=== PATIENT | female | born 1995 | race Caucasian/White ===

== ENCOUNTER 2023-01-30 18:26 | Emergency (ER) | payer OTHER, BC ==
[2023-01-30] MEDS ORDERED: Sodium Chloride 0.9% 1,000 ML IV SCH (18:30)
[2023-01-30 18:42] LABS: BASOPHILS ABSOLUTE AUTO 0.1 x10-3/uL (0.0-0.1); BASOPHILS PERCENT AUTO 0.4 % (0.2-1.5); EOSINOPHILS ABSOLUTE AUTO 0.2 x10-3/uL (0.0-0.8); EOSINOPHILS PERCENT AUTO 1.9 % (0.6-8.1); HEMATOCRIT 28.8 % (34.2-48.2); HEMOGLOBIN 9.4 g/dL (11.4-15.5); LYMPHOCYTES ABSOLUTE AUTO 2.1 x10-3/uL (1.0-4.4); LYMPHOCYTES PERCENT AUTO 16.6 % (18.4-52.1); MEAN CORPUSCULAR HEMOGLOBIN 27.2 pg (23.9-33.9); MEAN CORPUSCULAR HGB CONC 32.8 g/dL (31.9-34.8); MEAN CORPUSCULAR VOLUME 83.2 fL (76.7-100.5); MEAN PLATELET VOLUME 8.9 fL (7.1-12.4); MONOCYTES ABSOLUTE AUTO 0.9 x10-3/uL (0.3-1.0); MONOCYTES PERCENT AUTO 7.4 % (4.4-15.7); NEUTROPHILS ABSOLUTE AUTO 9.4 x10-3/uL (1.5-6.3); NEUTROPHILS PERCENT AUTO 73.7 % (30.8-76.2); PLATELET COUNT,PLT 334 x10(3)uL (151-488); RED BLOOD CELL COUNT 3.46 x10(6)uL (3.60-5.20); RED CELL DISTRIBUTION WIDTH 14.5 % (12.3-16.5); WHITE BLOOD CELL COUNT,WBC 12.8 x10-3/uL (3.0-10.3)
[2023-01-30 18:44] LABS: BLOOD UREA NITROGEN,BUN 15 mg/dL (7-18); BUN/CREATININE RATIO 18.8 (9-20); CALCIUM 8.6 mg/dL (8.6-10.2); CARBON DIOXIDE,CO2 21 mmol/L (21-32); CHLORIDE,CL 104 mmol/L (100-110); CREATININE 0.8 mg/dL (0.55-1.02); ESTIMATED GFR 103 mL/min (>60); GLUCOSE RANDOM 133 mg/dL (80-116); SODIUM,NA 139 mmol/L (135-145)
[2023-01-30] MEDS ORDERED: Potassium Chloride 20 MEQ Tab.ER PO ONE ×2 (19:27→22:00)
[2023-01-30] MEDS ORDERED: Ondansetron 4 MG/2 ML SDV IVPUSH PRN (21:29)
[2023-01-30] MEDS ORDERED: NS + KCl 20mEq/L 1,000 ML IV SCH (21:30)
[2023-01-30] MEDS ORDERED: Ondansetron 4 MG/2 ML SDV IVPUSH SCH (21:30)
[2023-01-30] MEDS ORDERED: Potassium Chloride 20 MEQ Tab.ER PO STA (21:52)
[2023-01-30] MEDS ORDERED: Magnesium Sulfate/Water 2 GM in Premix Bag 1 BAG IV ONE (22:04)
[2023-01-31] MEDS ORDERED: Potassium Chloride 20 MEQ Tab.ER PO ONE
[2023-01-31 06:01] LABS: BASOPHILS PERCENT AUTO 0.3 % (0.2-1.5); EOSINOPHILS ABSOLUTE AUTO 0.1 x10-3/uL (0.0-0.8); EOSINOPHILS PERCENT AUTO 1.3 % (0.6-8.1); HEMATOCRIT 24.2 % (34.2-48.2); HEMOGLOBIN 7.9 g/dL (11.4-15.5); LYMPHOCYTES ABSOLUTE AUTO 1.7 x10-3/uL (1.0-4.4); LYMPHOCYTES PERCENT AUTO 18.4 % (18.4-52.1); MEAN CORPUSCULAR HEMOGLOBIN 27.3 pg (23.9-33.9); MEAN CORPUSCULAR HGB CONC 32.5 g/dL (31.9-34.8); MEAN CORPUSCULAR VOLUME 84.2 fL (76.7-100.5); MEAN PLATELET VOLUME 8.8 fL (7.1-12.4); MONOCYTES ABSOLUTE AUTO 0.7 x10-3/uL (0.3-1.0); MONOCYTES PERCENT AUTO 7.5 % (4.4-15.7); NEUTROPHILS ABSOLUTE AUTO 6.7 x10-3/uL (1.5-6.3); NEUTROPHILS PERCENT AUTO 72.5 % (30.8-76.2); PLATELET COUNT,PLT 306 x10(3)uL (151-488); RED BLOOD CELL COUNT 2.88 x10(6)uL (3.60-5.20); RED CELL DISTRIBUTION WIDTH 14.5 % (12.3-16.5); WHITE BLOOD CELL COUNT,WBC 9.2 x10-3/uL (3.0-10.3)
[2023-01-31 06:07] LABS: BLOOD UREA NITROGEN,BUN 10 mg/dL (7-18); BUN/CREATININE RATIO 14.3 (9-20); CALCIUM 8.1 mg/dL (8.6-10.2); CARBON DIOXIDE,CO2 22 mmol/L (21-32); CHLORIDE,CL 107 mmol/L (100-110); CREATININE 0.7 mg/dL (0.55-1.02); EST CRCL DRUG DOSING (CG) 112.01 mL/min; ESTIMATED GFR 121 mL/min (>60); GLUCOSE RANDOM 89 mg/dL (80-116); POTASSIUM,K 4.2 mmol/L (3.5-5.3); SODIUM,NA 138 mmol/L (135-145)
== END 2023-01-31 07:10 | disposition home or self-care (01) ==
LOC: FB.ED 18:26
DX: R55 Syncope and collapse (principal); D64.9 Anemia, unspecified; N93.9 Abnormal uterine and vaginal bleeding, unspecified; Z88.8 Allergy status to other drugs, medicaments and biological substances; Z88.2 Allergy status to sulfonamides; Z79.899 Other long term (current) drug therapy
CPT/HCPCS: 36415; 80048; 83735; 85025; 93005; 96361; 96365; 96366; 96368; 99284; A9270; J2405; J3475; J3480; J7030; J3490